=== PATIENT | female | born 1950 | race Caucasian/White ===

== ENCOUNTER 2018-07-05 19:47 | Observation (INO) ==
[2018-07-05] MEDS ORDERED: Azithromycin 250 MG TABLET PO ONE (19:48)
[2018-07-05] MEDS ORDERED: Ipratropium/Albuterol Neb 3 ML IH ONE (19:48)
[2018-07-05] MEDS ORDERED: predniSONE 20 MG TABLET PO ONE (19:48)
--- NOTE | 2018-07-05 19:51 | Emergency Department Note ---
Disposition Clinical Impression: Acute bronchitis with bronchospasm, Elevated troponin I level, Lactic acid increased Disposition: Admitted As Inpatient Condition: Fair Referrals: Genie Chaidez MD [Primary Care Provider] - Forms: ED Satisfaction Letter SOB HPI - General Chief Complaint: ED Shortness of Breath/Dyspnea Stated Complaint: SOB Time Seen by Provider: 07/05/18 19:48 Source: patient, family Mode of arrival: private vehicle Limitations: no limitations Nursing Notes Reviewed: Yes Vital Signs Reviewed: Yes - History of Present Illness Patient relates she is been feeling poorly for 4-5 weeks is occasional shortness of breath. She is seen initially had an urgent care and she had an antibiotic and steroid given. She states she was doing much better this had increased shortness of breath again especially in the last 2-3 days. She has had a cough increased wheezing and production of some clear phlegm. She states she has had a history of asthma and CHF but not COPD. She does have a long history of smoking exposure to smoke. She herself is been a nonsmoker. She denies any lower extremity swelling or increase in weight. She denies fevers or chills. She denies chest pain or palpitations. Denies nausea, vomiting or abdominal pain. She denies any ill exposures. She states she has been on her routine inhaler and aerosols with the last aerosol just prior to arrival. She states she is diabetic and her blood sugars have been running in the range of 100-120. She ambulates in with a cane. Pt Subjective Complaint: shortness of breath Onset (ago): day(s) Context: recent illness Severity: mild, moderate Consistency/Duration: intermittent, gradually worsening Improves with: oxygen, bronchodilators Worsens with: exertion, movement, coughing Known history of: asthma, congestive heart failure Associated symptoms: Reports: cough, wheezing, sputum production. Denies: chest pain, pain with inspiration, fever, orthopnea, lower extremity pain, polyuria, polydipsia, parasthesias, palpitations, hemoptysis, diaphoresis, nausea/vomiting, syncope, abdominal pain, rash Treatment prior to arrival: bronchodilator Cough present: Yes Cough Description: Voluntary, Productive, Moist, Wheezy Cough Frequency: Intermittent Sputum production: Yes Sputum Amount: Moderate Sputum Color: Clear - Related Data Home Medications Medication Instructions Recorded Confirmed Insulin DETEMIR [Levemir] 50 unit SQ HS 08/09/16 07/05/18 Loratadine [Claritin] 10 mg PO QAM 08/09/16 07/05/18 Montelukast [Singulair] 10 mg PO HS 08/09/16 07/05/18 SitaGLIPtin [Januvia] 100 mg PO DAILY 08/09/16 07/05/18 Albuterol Sulfate [Proair Hfa] 2 puff IH Q4H PRN 08/10/16 07/05/18 Beclomethasone Diprop 80mcg [QVAR 1 puff IH BID 08/10/16 07/05/18 80 mcg] Metformin HCl [Metformin HCl ER] 2,000 mg PO QPM 08/10/16 07/05/18 Furosemide [Lasix] 40 mg PO BID 09/06/16 07/05/18 Lisinopril [Zestril] 2.5 mg PO DAILY 04/27/17 07/05/18 Acetaminophen [Tylenol] 650 mg PO Q6HR PRN 05/06/17 07/05/18 Warfarin Sodium 2.5 mg PO DAILY 05/06/17 07/05/18 Potassium Chloride [Klor-Con 10] 20 meq PO DAILY 06/22/17 07/05/18 Previous Rx's Medication Instructions Recorded Ferrous Sulfate 325 mg PO BIDWM #60 tablet 01/19/17 Albuterol Neb [Proventil Neb] 2.5 mg IH Q6H PRN #60 inhsol 04/10/17 Guaifenesin [Mucinex] 600 mg PO BID #30 tab.er.12h 06/07/18 PredniSONE [Deltasone] 20 mg PO DAILY #12 tablet 06/07/18 Allergies Allergy/AdvReac Type Severity Reaction Status Date / Time No Known Allergies Allergy Verified 06/07/18 10:30 All systems ED: reviewed and negative except as stated. Past Medical History - Past Medical History Attestation: Yes The following information was validated with the patient. Source: patient, old records reviewed, obtained from family, nursing notes reviewed Medical history: Reports: asthma, atrial fibrillation (On anticoagulation), CHF, diabetes, hyperlipidemia, hypertension, other (Chronically elevated troponin I). Denies: COPD Surgical history: Reports: appendectomy, other, pacemaker Psychiatric history: Reports: anxiety, depression - Social History Smoking Status: 2nd Hand Smoke Exposure Smokeless Tobacco Status: No Alcohol use: Reports: none Drug use: Reports: none Physical Exam - General Limitations: no limitations General appearance: alert, anxious - Head Head exam: atraumatic, normocephalic, normal inspection - Eye Eye exam: Present: normal appearance, PERRL, EOMI. Absent: scleral icterus, conjunctival injection - ENT ENT exam: normal exam, normal oropharynx, mucous membranes moist - Neck Neck exam: Present: normal inspection, full ROM, trachea midline - Chest Chest inspection: Present: normal inspection, symmetric chest wall rise - Respiratory Respiratory exam: Present: respiratory distress, wheezes, prolonged expiratory phase. Absent: accessory muscle use - Cardiovascular Cardiovascular exam: Present: regular rate, normal rhythm, normal heart sounds. Absent: tachycardia - Abdominal Exam Abdominal exam: Present: soft, Non-Tender, normal bowel sounds. Absent: tenderness, distention, guarding, rebound, rigidity - Extremities Exam Extremities exam: Present: normal inspection, full ROM, normal capillary refill. Absent: tenderness, pedal edema, calf tenderness - Expanded Lower Extremity Exam Neurovascular/Tendon exam: Present: normal capillary refill. Absent: motor deficit, sensory deficit, tendon deficit Gait: observed and normal (With a cane) - Back Exam Back exam: Present: normal inspection, full ROM. Absent: tenderness - Neurological Exam Neurological exam: Present: alert, oriented X3 - Psychiatric Psychiatric exam: Present: normal affect, anxious - Skin Skin exam: Present: warm, dry, intact, normal color. Absent: cyanosis, diaphoresis, pallor Course Course Narrative: Care is been discussed with the patient and family and subsequently with Dr. Tejeda at 9:33 PM. He is agreeable with continuation of respiratory protocol inpatient. Patient does have a history of chronically elevated troponins and she is not having chest pain or heart failure. He is in agreement of not trending the troponins unless her symptoms are otherwise changing. She has been continued with IV fluids, administered Rocephin intravenously and scheduled for recheck of her lactic acid. Currently she does not appear to be septic. Verbal orders have been obtained for her observation period. Vital Signs Temperature 97.9 F 07/05/18 19:51 Pulse Rate 74 07/05/18 19:51 Respiratory Rate 24 07/05/18 19:51 Blood Pressure 117/48 07/05/18 19:51 O2 Sat by Pulse Oximetry 95 07/05/18 19:51 Temperature 97.9 F 07/05/18 19:51 Pulse Rate 72 07/05/18 19:56 Respiratory Rate 20 07/05/18 20:01 Blood Pressure 117/48 07/05/18 19:56 O2 Sat by Pulse Oximetry 95 07/05/18 20:01 Oxygen Delivery Oxygen Delivery Room Air Shortness of Breath/Dyspnea - Differential Diagnosis Likely: acute exacerbation of chronic obstructive airways disease, congestive heart failure, pneumonia, asthma with exacerbation. Unlikely: pneumothorax - Medical Records Medical records reviewed: Yes I reviewed the patient's medical records. - Lab Data Lab results reviewed: Yes I reviewed the patient's lab results. Result diagrams: 07/05/18 20:13 07/05/18 20:13 Lab Results 07/05/18 07/05/18 07/05/18 Range/Units 20:13 20:13 20:13 WBC 5.9 (4.3-11.1) K/mcL RBC 3.25 L (3.82-4.97) M/mcL Hgb 9.4 L (11.5-15.4) g/dL Hct 29.6 L (35.3-44.9) % MCV 91.1 (83.0-100.0) fL MCH 28.9 (28.0-33.3) pg MCHC 31.8 (31.6-35.5) g/dL RDW 13.7 (11.5-14.5) % Plt Count 217 (140-400) K/mcL MPV 9.3 L (9.4-12.4) fL Immature Gran % 0.8 (0-4) % Seg Neutrophils % 70.0 % Lymphocytes % 18.5 % Monocytes % 9.3 % Eosinophils % 1.2 % Basophils % 0.2 % Neutrophils # 4.1 (1.6-8.9) K/mcL Lymphocytes # 1.1 (0.6-4.6) K/mcL Monocytes # 0.6 (0.0-1.3) K/mcL Eosinophils # 0.1 (0.0-0.6) K/mcL Basophils # 0.0 (0.0-0.2) K/mcL PT (9.4-12.1) Seconds INR Sodium 137 (136-145) mEq/L Potassium 4.3 (3.5-5.1) mEq/L Chloride 102 (98-107) mEq/L Carbon Dioxide 22 L (23-29) mEq/L BUN 18 (8-23) mg/dL Creatinine 1.40 H (0.60-1.20) mg/dL Est GFR ( Amer) 45 L (> 60) Est GFR (Non-Af Amer) 37 L (> 60) BUN/Creatinine Ratio 13 (6-26) Glucose 152 H (70-105) mg/dL Calculated Osmolality 289 (280-300) Lactic Acid 2.8 H (0.5-2.2) mmol/L Calcium 8.6 (8.6-10.3) mg/dL Troponin I 0.07 H* (< 0.04) ng/mL B-Natriuretic Peptide (Less than 100) pg/mL 07/05/18 07/05/18 Range/Units 20:13 20:13 WBC (4.3-11.1) K/mcL RBC (3.82-4.97) M/mcL Hgb (11.5-15.4) g/dL Hct (35.3-44.9) % MCV (83.0-100.0) fL MCH (28.0-33.3) pg MCHC (31.6-35.5) g/dL RDW (11.5-14.5) % Plt Count (140-400) K/mcL MPV (9.4-12.4) fL Immature Gran % (0-4) % Seg Neutrophils % % Lymphocytes % % Monocytes % % Eosinophils % % Basophils % % Neutrophils # (1.6-8.9) K/mcL Lymphocytes # (0.6-4.6) K/mcL Monocytes # (0.0-1.3) K/mcL Eosinophils # (0.0-0.6) K/mcL Basophils # (0.0-0.2) K/mcL PT 32.3 H (9.4-12.1) Seconds INR 2.9 Sodium (136-145) mEq/L Potassium (3.5-5.1) mEq/L Chloride (98-107) mEq/L Carbon Dioxide (23-29) mEq/L BUN (8-23) mg/dL Creatinine (0.60-1.20) mg/dL Est GFR ( Amer) (> 60) Est GFR (Non-Af Amer) (> 60) BUN/Creatinine Ratio (6-26) Glucose (70-105) mg/dL Calculated Osmolality (280-300) Lactic Acid (0.5-2.2) mmol/L Calcium (8.6-10.3) mg/dL Troponin I (< 0.04) ng/mL B-Natriuretic Peptide 258 H (Less than 100) pg/mL - Radiology Data Radiology results reviewed: Yes I reviewed the patient's radiology results. Single view chest x-rays performed. This demonstrates cardiomegaly without acute infiltrate, effusion, pneumothorax or heart failure. Patient has a pacer intact in the left upper chest with intact wires. This is on my interpretation. Impressions Chest X-Ray 07/05/18 19:48 IMPRESSION: No acute process. D/ / Pedro Osullivan MD / Pedro Osullivan MD Interpreting Provider: Pedro Osullivan MD - EKG Data EKG attestation: Yes I reviewed and interpreted this EKG. EKG results narrative: EKG demonstrates a atrioventricular paced rhythm without acute ST or T-wave changes. Rate is 74. This is on my interpretation.
[2018-07-05 20:30] LABS: Basophils % 0.2 %; Eosinophils # 0.1 K/mcL (0.0-0.6); Eosinophils % 1.2 %; Hematocrit 29.6 % (35.3-44.9); Hemoglobin 9.4 g/dL (11.5-15.4); Immature Granulocytes % 0.8 % (0-4); Lymphocytes # 1.1 K/mcL (0.6-4.6); Lymphocytes % 18.5 %; Mean Corpuscular HGB Conc 31.8 g/dL (31.6-35.5); Mean Corpuscular Hemoglobin 28.9 pg (28.0-33.3); Mean Corpuscular Volume 91.1 fL (83.0-100.0); Mean Platelet Volume 9.3 fL (9.4-12.4); Monocytes # 0.6 K/mcL (0.0-1.3); Monocytes % 9.3 %; Neutrophils # 4.1 K/mcL (1.6-8.9); Platelet Count 217 K/mcL (140-400); Red Blood Count 3.25 M/mcL (3.82-4.97); Red Cell Distribution Width 13.7 % (11.5-14.5)
[2018-07-05 20:31] LABS: INR 2.9; Prothrombin Time 32.3 Seconds (9.4-12.1)
[2018-07-05 20:43] LABS: Calcium 8.6 mg/dL (8.6-10.3); Potassium 4.3 mEq/L (3.5-5.1)
[2018-07-05 20:46] LABS: Troponin I 0.07 ng/mL (< 0.04)
[2018-07-05] MEDS ORDERED: cefTRIAXone 2,000 MG in 0.9 % Sodium Chloride Mini Bag 100 ML IVPB ONE (20:49)
[2018-07-05] MEDS ORDERED: 0.9 % Sodium Chloride 1,000 ML ONE (21:08)
[2018-07-05] MEDS: 0.9 % Sodium Chloride 1,000 ML IVC SCH ×2 (21:10→21:16)
[2018-07-05] MEDS ORDERED: Naloxone 0.4 MG/ML INJ IVP PRN (23:03)
[2018-07-05] MEDS ORDERED: *HR* Dextrose 50 % in Water (Syg) 50 ML SYRINGE IVP PRN (23:03)
[2018-07-05] MEDS ORDERED: Dextrose Gel 15 GM/37.5 ML TUBE PO PRN ×2 (23:03)
[2018-07-06] MEDS ORDERED: Acetaminophen 325 MG TABLET PO PRN (00:43)
[2018-07-06] MEDS ORDERED: 0.9 % Sodium Chloride 1,000 ML ONE (00:45)
[2018-07-06] MEDS ORDERED: D5% in Water 1,000 ML IVC PRN (00:46)
[2018-07-06] MEDS: Ipratropium/Albuterol Neb 3 ML IH SCH ×3 (02:02→09:11)
[2018-07-06] MEDS: 0.9 % Sodium Chloride 1,000 ML IVC SCH ×2 (06:13→18:01)
[2018-07-06] MEDS: *HR* SitaGLIPtin 25 MG TABLET PO SCH (08:01)
[2018-07-06] MEDS: Loratadine 10 MG TABLET PO SCH (08:02)
[2018-07-06] MEDS: predniSONE 20 MG TABLET PO SCH ×2 (08:03→17:33)
[2018-07-06] MEDS: Insulin LISPRO 300 UNITS/3 ML VIAL SQ SCH ×3 (08:04→17:38)
[2018-07-06] MEDS ORDERED: Furosemide 40 MG TABLET PO SCH (09:00)
--- NOTE | 2018-07-06 12:02 | Internal Med History&Physical ---
Date of Encounter: 07/06/18 Time of Encounter: 11:30 Assessment and Plan (1) (HFpEF) heart failure with preserved ejection fraction Current visit: No Status: Chronic Suspect primary contributor to dyspnea. Will increase Lasix and add low-dose Imdur. (2) Atrial fibrillation Current visit: No Status: Chronic Continue Coumadin. Qualifiers: Atrial fibrillation type: chronic Qualified Code(s): I48.2 - Chronic atrial fibrillation (3) CKD (chronic kidney disease) stage 2, GFR 60-89 ml/min Current visit: No Status: Acute Monitor renal indices. (4) Anemia Current visit: No Status: Chronic Present on all labs since August 2016. Order anemia testing in a.m. Qualifiers: Anemia type: iron deficiency Qualified Code(s): D50.9 - Iron deficiency anemia, unspecified (5) DM type 2 (diabetes mellitus, type 2) Current visit: Yes Status: Chronic Hemoglobin A1c was 6.2% on 06/23/2017. Recheck in a.m. Qualifiers: Diabetes mellitus jail insulin use: with director long term care use Diabetes mellitus complication status: with kidney complications Diabetes mellitus complication detail: with chronic kidney disease Chronic kidney disease stage: stage 3 (moderate) Qualified Code(s): E11.22 - Type 2 diabetes mellitus with diabetic chronic kidney disease; N18.3 - Chronic kidney disease, stage 3 (moderate); Z79.4 - longterm (current) use of insulin (6) Elevated troponin I level Current visit: Yes Status: Chronic Present on all labs since 04/10/2017. Heart cath August 2016 showed no significant CAD. Likely demand ischemia from heart failure. Internal Medicine - H&P: HPI Chief complaint: Dyspnea and cough Admitted From: Emergency Dept Plans for Post Hospital Care: Home History of present illness: Ms. Levi is a 67 year old female who came to emergency room stating she had onset of dyspnea with cough approximately 7 weeks earlier. She reports going to a local urgent care and receiving treatment which included antibiotics for 1 week. She had minimal change in symptoms so decided to come to emergency room. She was evaluated and was felt to have acute bronchitis with bronchospasm. She was admitted to [facility] floor for ongoing care needs. She states her breathing has improved. Respiratory history is significant for being a lifelong nonsmoker. She is uncertain if she has been diagnosed with asthma. She denies PFTs and does not use home oxygen. She has been diagnosed with ANNETTA but states she cannot tolerate CPAP/BiPAP. 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 ALso has a pacer/defib Psychiatric history: anxiety, depression - Past Surgical History Surgical History: appendectomy, other, pacemaker Additional surgical history: cervical fusion - Social History Smoking Status: 2nd Hand Smoke Exposure Smokeless Tobacco Status: No Alcohol use: none Drug use: none - Family History Mother Adopted: No Family Member Ethnicity: Non- Living Status: Hx Family Cardiac Disorders: No Hx Family Respiratory Disorders: No Hx Family Cancer: Yes (Cervical/Uterine) Hx Family GI Disorders: No Hx Family Endocrine Disorder: No Hx Family Neuromuscular Disorders: No Hx Family Neurologic Disorders: No Hx Family HEENT Disorders: No Hx Family Autoimmune Disorders: No Father Family Member Ethnicity: Non- Living Status: Hx Family Cardiac Disorders: Yes (IA, HTN) Brother Family Member Ethnicity: Non- Living Status: Still Living Sister Family Member Ethnicity: Non- Living Status: Hx Family Cancer: Yes Hx Family Endocrine Disorder: Yes (DM) Internal Medicine - H&P: Meds Insulin DETEMIR [Levemir] 50 unit SQ HS 08/09/16 [History] Loratadine [Claritin] 10 mg PO QAM 08/09/16 [History] Montelukast [Singulair] 10 mg PO HS 08/09/16 [History] SitaGLIPtin [Januvia] 100 mg PO DAILY 08/09/16 [History] Albuterol Sulfate [Proair Hfa] 2 puff IH Q4H PRN 08/10/16 [History] Beclomethasone Diprop 80mcg [QVAR 80 mcg] 1 puff IH BID 08/10/16 [History] Metformin HCl [Metformin HCl ER] 2,000 mg PO QPM 08/10/16 [History] Furosemide [Lasix] 40 mg PO BID 09/06/16 [History] Ferrous Sulfate 325 mg PO BIDWM #60 tablet 01/19/17 [Rx] Albuterol Neb [Proventil Neb] 2.5 mg IH Q6H PRN #60 inhsol 04/10/17 [Rx] Lisinopril [Zestril] 2.5 mg PO DAILY 04/27/17 [History] Acetaminophen [Tylenol] 650 mg PO Q6HR PRN 05/06/17 [History] Warfarin Sodium 2.5 mg PO DAILY 05/06/17 [History] Potassium Chloride [Klor-Con 10] 20 meq PO DAILY 06/22/17 [History] Guaifenesin [Mucinex] 600 mg PO BID #30 tab.er.12h 06/07/18 [Rx] PredniSONE [Deltasone] 20 mg PO DAILY #12 tablet 06/07/18 [Rx] 3 Allergy/AdvReac Type Severity Reaction Status Date / Time No Known Allergies Allergy Verified 06/07/18 10:30 All Systems PM: A 10-system review of systems was performed and is negative for pertinent findings except as documented above in the HPI. Review of systems: Enteral: Her weight has slightly decreased from 119.9 kg in 06/26/2017 to 115.014 kg on admission now. Cardiovascular: She has history of hypertension. She has a diagnoses of CHF. Limited echocardiogram 05/08/2017 showed LVEF of 50%. The interventricular septum and posterior wall thickness measurements were significantly increased at 1.45 and 1.52 cm respectively. Echocardiogram 09/07/2016 showed severe LV systolic dysfunction with LVEF of 30%. There was biatrial enlargement reported without measurements recorded. There was mild mitral regurgitation, mild tric uspid regurgitation, and elevated RVSP at 42 mmHg. She has a diagnosis of atrial fibrillation and is on Coumadin. She had dual-chamber pacemaker placed approximately 2012 but is uncertain of the qualifying diagnosis. She denies IA DVT or pulmonary embolus. Respiratory: As per history of present illness GI: She denies disorders of her liver gallbladder or exocrine pancreas : She was unaware she has chronic kidney disease stage 2-3. She does not follow with a cash management coordinator. She denies other kidney or bladder disorders. Neurologic: She denies large distribution strokes or seizures. Endocrine: She was diagnosed with DM 2 approximately 2007. She denies thyroid disease or hyperlipidemia Hematology/oncology: She was unaware she had anemia. She denies internal malignancies or other blood disorders. Psychiatric: She admits to feelings of depression periodically but does not take medication for this. She denies significant anxiety or other mental health diagnosis. [place] skeletal: She denies arthritis gout or other bone joint or muscle disorders. - Constitutional Vitals: Temp Pulse Resp BP Pulse Ox 97.6 F 75 16 112/65 94 07/06/18 06:50 07/06/18 06:50 07/06/18 09:12 07/06/18 06:50 07/06/18 09:12 Exam: Gen.: She is a well-developed overweight female lying in bed who appears slightly dyspneic HEENT: Head is atraumatic and normal cephalic. Eyes: EOMI. There is no scleral icterus. Mouth: Mucosa is moist. Neck: Supple and nontender. There is no thyromegaly or adenopathy noted. Heart: Regular without murmurs gallops or ectopics Lungs: She has prolonged expiratory phase with mild diffuse wheezing in the posterior lung marquez. No inspiratory crackles are heard. Abdomen: Soft and nontender. No masses or guarding are noted. Extremities: There is no cyanosis edema or clubbing noted. Dorsalis pedis and posttibial pulses are trace palpable bilaterally. Neurologic: Mental status: She is talkative and a good historian. Cranial nerves: Smile is symmetric. Forehead wrinkles bilaterally. Tongue protrudes midline. EOMI. She is slightly hard of hearing. Motor: There is no pronator drift. Cerebellar: Finger to nose is intact bilaterally. Skin: Warm and dry Internal Med - H&P Results - Labs CBC & Chem 7: 07/05/18 20:13 07/05/18 20:13 Labs: Short CBC 07/05/18 Range/Units 20:13 WBC 5.9 (4.3-11.1) K/mcL Hgb 9.4 L (11.5-15.4) g/dL Hct 29.6 L (35.3-44.9) % Plt Count 217 (140-400) K/mcL Neutrophils # 4.1 (1.6-8.9) K/mcL BMP 07/05/18 20:13 Sodium 137 Potassium 4.3 Chloride 102 Carbon Dioxide 22 L BUN 18 Creatinine 1.40 H Glucose 152 H Calcium 8.6 Cardiac Enzymes 07/05/18 Range/Units 20:13 Troponin I 0.07 H* (< 0.04) ng/mL - Impressions ITS Impressions Chest X-Ray 07/05/18 19:48 IMPRESSION: No acute process. D/ / Pedro Osullivan MD / Pedro Osullivan MD Interpreting Provider: Pedro Osullivan MD
[2018-07-06] MEDS: Isosorbide MONOnitrate (24 HR) 30 MG TAB.ER.24H PO SCH (13:49)
[2018-07-06] MEDS: Furosemide 40 MG TABLET PO SCH (17:33)
[2018-07-06] MEDS ORDERED: *HR* Metformin 500 MG TABLET PO SCH (18:00)
[2018-07-06] MEDS ORDERED: *HR* Warfarin 5 MG TABLET PO SCH (18:00)
[2018-07-06] MEDS ORDERED: Azithromycin 500 MG in D5% in Water 250 ML IVPB SCH (20:00)
[2018-07-06] MEDS ORDERED: cefTRIAXone 2,000 MG in 0.9 % Sodium Chloride Mini Bag 100 ML IVPB SCH (20:00)
[2018-07-06] MEDS ORDERED: Insulin DETEMIR 100 UNIT/ML X5UNITS SQ SCH (21:00)
[2018-07-06] MEDS: Albuterol 2.5 MG/3 ML NEBULIZER IH PRN (22:15)
[2018-07-06] MEDS ORDERED: Benzonatate 100 MG CAPSULE PO PRN (22:36)
[2018-07-07 06:33] VITALS: BP 128/80
[2018-07-07 08:54] LABS: % Iron Saturation 12 % (15-50); Iron 41 mcg/dL (50-170); Transferrin 250 mg/dL (203-362)
[2018-07-07 09:09] LABS: Ferritin 118 ng/mL (10-120)
[2018-07-07] MEDS: Loratadine 10 MG TABLET PO SCH (09:09)
[2018-07-07] MEDS: Furosemide 40 MG TABLET PO SCH (09:09)
[2018-07-07] MEDS: *HR* SitaGLIPtin 25 MG TABLET PO SCH (09:09)
[2018-07-07] MEDS: Insulin LISPRO 300 UNITS/3 ML VIAL SQ SCH (09:10)
[2018-07-07] MEDS: predniSONE 20 MG TABLET PO SCH (09:10)
[2018-07-07] MEDS: Isosorbide MONOnitrate (24 HR) 30 MG TAB.ER.24H PO SCH (09:10)
[2018-07-07] MEDS: Albuterol 2.5 MG/3 ML NEBULIZER IH PRN (10:19)
--- NOTE | 2018-07-07 11:06 | Discharge Summary ---
Orders not resulted at time of discharge: Pending orders 07/05/18 20:22 Culture,Blood [BC] Stat 07/07/18 04:40 Hgb A1C AM 0400 Date of Encounter: 07/07/18 Time of Encounter: 10:55 - Discharge Diagnosis (1) (HFpEF) heart failure with preserved ejection fraction Priority: Primary Status: Chronic (2) Atrial fibrillation Priority: Secondary Status: Chronic Qualifiers: Atrial fibrillation type: chronic Qualified Code(s): I48.2 - Chronic atrial fibrillation (3) CKD (chronic kidney disease) stage 2, GFR 60-89 ml/min Priority: Secondary Status: Acute (4) Anemia Priority: Secondary Status: Chronic Qualifiers: Anemia type: iron deficiency Qualified Code(s): D50.9 - Iron deficiency anemia, unspecified (5) DM type 2 (diabetes mellitus, type 2) Priority: Secondary Status: Chronic Qualifiers: Diabetes mellitus senior living insulin use: with senior living use Diabetes mellitus complication status: with kidney complications Diabetes mellitus complication detail: with chronic kidney disease Chronic kidney disease stage: stage 3 (moderate) Qualified Code(s): E11.22 - Type 2 diabetes mellitus with diabetic chronic kidney disease; N18.3 - Chronic kidney disease, stage 3 (moderate); Z79.4 - custodial (current) use of insulin (6) Elevated troponin I level Priority: Secondary Status: Chronic Hospital course: Ms. Levi is a 67 year old female who came to emergency room stating she had onset of dyspnea with cough approximately 7 weeks earlier. She reports going to a local urgent care and receiving treatment which included antibiotics for 1 week. She had minimal change in symptoms so decided to come to emergency room. She was evaluated and was felt to have acute bronchitis with bronchospasm. She was admitted to [facility] for ongoing care needs. Initial orders were written by the emergency room physician. I saw her on July 06 and performed a history and physical. Lasix dose was increased to 60 mg twice a day. Imdur was added at a dose of 30 mg daily. Lactic acid level normalized to 0.9 by July 06. Dyspnea had lessened when I saw her on July 07 and she felt stable for discharge home. She will continue Qvar and albuterol at home. Stiolto inhaler will be added. Room air oximetry showed adequate oxygenation without requirement for supplemental oxygen at home. Anemia testing showed iron 41, transferrin saturation 12%, transferrin 250, ferritin 118, B12 1483, and folate 9.0. She is presently ferrous sulfate twice a day at home. Her PCP can monitor anemia. She will follow with Dr. Chaidez within 1 week. - Time Spent with Patient Total time spent providing and/or coordinating discharge services: - Discharge Medications Prescriptions: Albuterol Neb [Proventil Neb] 2.5 mg IH Q6H PRN #60 inhsol PRN Reason: Wheezing Furosemide [Lasix] 60 mg PO BIDDIURETIC #90 tablet Isosorbide MONOnitrate (24 HR) [Imdur] 30 mg PO DAILY #30 tab.er.24h Tiotropium Br/Olodaterol HCl [Stiolto Respimat Inhal [place]] 4 gm IH DAILY #1 mist.inhal Home Medications: Insulin DETEMIR [Levemir] 50 unit SQ HS 08/09/16 [History] Loratadine [Claritin] 10 mg PO QAM 08/09/16 [History] Montelukast [Singulair] 10 mg PO HS 08/09/16 [History] SitaGLIPtin [Januvia] 100 mg PO DAILY 08/09/16 [History] Albuterol Sulfate [Proair Hfa] 2 puff IH Q4H PRN 08/10/16 [History] Beclomethasone Diprop 80mcg [QVAR 80 mcg] 1 puff IH BID 08/10/16 [History] Metformin HCl [Metformin HCl ER] 2,000 mg PO QPM 08/10/16 [History] Ferrous Sulfate 325 mg PO BIDWM #60 tablet 01/19/17 [Rx] Lisinopril [Zestril] 2.5 mg PO DAILY 04/27/17 [History] Acetaminophen [Tylenol] 650 mg PO Q6HR PRN 05/06/17 [History] Warfarin Sodium 2.5 mg PO DAILY 05/06/17 [History] Potassium Chloride [Klor-Con 10] 20 meq PO DAILY 06/22/17 [History] Guaifenesin [Mucinex] 600 mg PO BID #30 tab.er.12h 06/07/18 [Rx] PredniSONE [Deltasone] 20 mg PO DAILY #12 tablet 06/07/18 [Rx] Albuterol Neb [Proventil Neb] 2.5 mg IH Q6H PRN #60 inhsol 07/07/18 [Rx] Furosemide [Lasix] 60 mg PO BIDDIURETIC #90 tablet 07/07/18 [Rx] Isosorbide MONOnitrate (24 HR) [Imdur] 30 mg PO DAILY #30 tab.er.24h 07/07/18 [Rx] Tiotropium Br/Olodaterol HCl [Stiolto Respimat Inhal [place]] 4 gm IH DAILY #1 mist.inhal 07/07/18 [Rx] Allergies/Adverse Reactions: Allergy/AdvReac Type Severity Reaction Status Date / Time No Known Allergies Allergy Verified 06/07/18 10:30 Date of admission: 07/05/18 22:03 Primary care physician: Genie Chaidez MD - Constitutional Vitals: Temp Pulse Resp BP Pulse Ox 97.6 F 76 22 128/80 96 07/07/18 06:32 07/07/18 06:32 07/07/18 10:19 07/07/18 06:32 07/07/18 10:19 - Patient Status Disposition: Home, Self-Care Condition: Fair - Discharge Instructions Follow Up With: Genie Chaidez MD [Primary Care Provider] - 1 week - Diet and Activity Activity: resume usual activities as tolerated Diet: diabetic diet
[2018-07-07 14:55] LABS: Estimated Average Glucose 180 mg/dl; Hemoglobin A1C 7.9 %
--- NOTE | 2018-07-07 15:59 | Electrocardiograph Report ---
[address] [id number] Test Date: 2018-07-05 Pat Name: Leslie Levi Department: EDP-12 Room: [facility] Gender: F Assistant Project Manager: : 1950 Requested By: Clayton Parsons Order Number: [id number] Reading MD: Serge Garza Measurements Intervals Gering Rate: 74 P: WA: 56 QRS: 252 QRSD: 172 T: 86 QT: 430 QTc: 464 Interpretive Statements Atrial-ventricular dual-paced complexes No further analysis attempted due to paced rhythm Electronically Signed On 07-07-2018 15:58:02 EST by Serge Garza
== END 2018-07-07 12:28 | disposition home or self-care (01) ==
LOC: INPPIK 19:47 → EMEROOPIK 19:47 → INPPIK 22:49
PROVIDERS: ADMIT Internal Medicine; ATTEND Internal Medicine

== ENCOUNTER 2022-03-14 21:08 | Inpatient (IN) ==
[2022-03-14 22:37] LABS: Basophils % 0.2 %; Eosinophils # 0.1 K/mcL (0.0-0.6); Eosinophils % 1.7 %; Hematocrit 25.6 % (35.3-44.9); Hemoglobin 8.1 g/dL (11.5-15.4); Immature Granulocytes % 0.4 % (0-4); Lymphocytes % 20.3 %; Mean Corpuscular HGB Conc 31.6 g/dL (31.6-35.5); Mean Corpuscular Hemoglobin 29.5 pg (28.0-33.3); Mean Corpuscular Volume 93.1 fL (83.0-100.0); Mean Platelet Volume 9.8 fL (9.4-12.4); Monocytes # 0.4 K/mcL (0.0-1.3); Monocytes % 8.5 %; Neutrophils # 3.2 K/mcL (1.6-8.9); Platelet Count 133 K/mcL (140-400); Red Blood Count 2.75 M/mcL (3.82-4.97); Red Cell Distribution Width 14.6 % (11.5-14.5); Segmented Neutrophils % 68.9 %; White Blood Count 4.7 K/mcL (4.3-11.1)
[2022-03-14 22:46] LABS: INR 2.4; Prothrombin Time 26.5 Seconds (9.4-12.1)
[2022-03-14 22:50] LABS: Bilirubin,Urine Negative (Negative); Blood,Urine Negative (Negative); Clarity,Urine Clear (Clear); Color,Urine Yellow (Yellow); Glucose,Urine (UA) Normal (Normal); Ketones,Urine Negative (Negative); Leukocyte Esterase,Urine Negative (Negative); Nitrite,Urine Negative (Negative); Protein,Urine Negative (Neg-Trace); Specific Gravity,Urine 1.015 (1.010-1.025); Urobilinogen,Urine Normal (Normal)
[2022-03-14 22:54] LABS: Albumin 3.7 g/dL (3.5-5.7); Albumin/Globulin Ratio 1.3 (1.1-2.2); Bilirubin,Direct 0.1 mg/dL (0.0-0.2); Bilirubin,Indirect 0.4 mg/dL (0.0-1.0); Bilirubin,Total 0.5 mg/dL (0.3-1.0); Calcium 8.7 mg/dL (8.6-10.3); Globulin 2.8 g/dL (2.4-3.5); Total Protein 6.5 g/dL (6.4-8.9)
[2022-03-14 23:08] LABS: Troponin I 0.04 ng/mL (< 0.04)
[2022-03-15] MEDS ORDERED: Furosemide 20 MG/2 ML VIAL IVP ONE (04:12)
[2022-03-15] MEDS ORDERED: Naloxone 0.4 MG/ML INJ IVP PRN (07:55)
[2022-03-15] MEDS ORDERED: Albuterol 2.5 MG/3 ML NEBULIZER IH PRN (08:01)
[2022-03-15] MEDS: Isosorbide MONOnitrate (24 HR) 30 MG TAB.ER.24H PO SCH (09:35)
[2022-03-15] MEDS: Aspirin 81 MG TAB.CHEW PO SCH (09:35)
[2022-03-15] MEDS: Albuterol 2.5 MG/3 ML NEBULIZER IH SCH ×3 (10:24→21:11)
[2022-03-15] MEDS: Tiotropium 10 INH DOSE IH SCH (10:25)
[2022-03-15 11:06] LABS: Sodium, Urine 91.6 mEq/L
[2022-03-15] MEDS ORDERED: *HR* Heparin 5,000 UNIT/ML VIAL SQ SCH (18:00)
[2022-03-15] MEDS ORDERED: Warfarin perPT PO PRN (18:00)
[2022-03-15] MEDS ORDERED: *HR* Warfarin 2 MG TABLET PO ONE (18:00)
[2022-03-15] MEDS: Acetaminophen 325 MG TABLET PO PRN (21:35)
[2022-03-15] MEDS: Melatonin 3 MG TABLET PO PRN (21:36)
[2022-03-15] MEDS: traZODone 50 MG TABLET PO SCH (21:36)
[2022-03-15] MEDS: Insulin DETEMIR 100 UNIT/ML X5UNITS SUBQ SCH (22:32)
[2022-03-16] MEDS: Albuterol 2.5 MG/3 ML NEBULIZER IH SCH ×4 (05:40→21:11)
[2022-03-16 07:10] LABS: Basophils % 0.4 %; Eosinophils # 0.1 K/mcL (0.0-0.6); Eosinophils % 1.1 %; Hematocrit 26.8 % (35.3-44.9); Hemoglobin 8.4 g/dL (11.5-15.4); Immature Granulocytes % 0.4 % (0-4); Lymphocytes # 0.8 K/mcL (0.6-4.6); Lymphocytes % 16.7 %; Mean Corpuscular HGB Conc 31.3 g/dL (31.6-35.5); Mean Corpuscular Hemoglobin 29.3 pg (28.0-33.3); Mean Corpuscular Volume 93.4 fL (83.0-100.0); Mean Platelet Volume 10.4 fL (9.4-12.4); Monocytes # 0.4 K/mcL (0.0-1.3); Monocytes % 8.9 %; Neutrophils # 3.3 K/mcL (1.6-8.9); Platelet Count 137 K/mcL (140-400); Red Blood Count 2.87 M/mcL (3.82-4.97); Red Cell Distribution Width 14.7 % (11.5-14.5); Segmented Neutrophils % 72.5 %; White Blood Count 4.5 K/mcL (4.3-11.1)
[2022-03-16 07:24] LABS: INR 2.1; Prothrombin Time 23.5 Seconds (9.4-12.1)
[2022-03-16 07:30] LABS: Calcium 8.9 mg/dL (8.6-10.3); Potassium 4.6 mEq/L (3.5-5.1)
[2022-03-16] MEDS: Acetaminophen 325 MG TABLET PO PRN ×2 (07:56→18:01)
[2022-03-16] MEDS: Tiotropium 10 INH DOSE IH SCH (09:21)
[2022-03-16] MEDS: Isosorbide MONOnitrate (24 HR) 30 MG TAB.ER.24H PO SCH (10:27)
[2022-03-16] MEDS: Aspirin 81 MG TAB.CHEW PO SCH (10:27)
[2022-03-16] MEDS ORDERED: *HR* Warfarin 3 MG TABLET PO ONE (18:00)
[2022-03-16] MEDS: Furosemide 40 MG/4 ML VIAL IVP SCH (18:06)
[2022-03-16] MEDS: traZODone 50 MG TABLET PO SCH (20:45)
[2022-03-16] MEDS: Melatonin 3 MG TABLET PO PRN (20:45)
[2022-03-16] MEDS: Insulin DETEMIR 100 UNIT/ML X5UNITS SUBQ SCH (20:48)
[2022-03-17] MEDS: Acetaminophen 325 MG TABLET PO PRN ×3 (00:42→20:29)
[2022-03-17] MEDS: Albuterol 2.5 MG/3 ML NEBULIZER IH SCH ×4 (04:33→22:41)
[2022-03-17 08:05] LABS: INR 2.6; Prothrombin Time 28.9 Seconds (9.4-12.1)
[2022-03-17 08:14] LABS: Potassium 4.7 mEq/L (3.5-5.1)
[2022-03-17] MEDS: Aspirin 81 MG TAB.CHEW PO SCH (08:52)
[2022-03-17] MEDS: Isosorbide MONOnitrate (24 HR) 30 MG TAB.ER.24H PO SCH (08:52)
[2022-03-17] MEDS: Furosemide 40 MG/4 ML VIAL IVP SCH ×2 (08:52→20:30)
[2022-03-17] MEDS: Tiotropium 10 INH DOSE IH SCH (09:48)
[2022-03-17] MEDS ORDERED: *HR* Warfarin 0.5 MG TABLET PO ONE ×2 (18:00→22:00)
[2022-03-17 18:43] VITALS: TEMP 97.6
[2022-03-17] MEDS: Insulin DETEMIR 100 UNIT/ML X5UNITS SUBQ SCH (20:30)
[2022-03-17] MEDS: traZODone 50 MG TABLET PO SCH (20:30)
[2022-03-18] MEDS: Acetaminophen 325 MG TABLET PO PRN ×2 (03:06→09:31)
[2022-03-18] MEDS: Albuterol 2.5 MG/3 ML NEBULIZER IH SCH ×2 (03:28→08:48)
[2022-03-18 07:16] LABS: INR 3.3; Prothrombin Time 36.8 Seconds (9.4-12.1)
[2022-03-18 07:48] VITALS: BP 109/61; PULSE 60
[2022-03-18 08:27] LABS: Calcium 8.5 mg/dL (8.6-10.3); Potassium 4.5 mEq/L (3.5-5.1)
[2022-03-18] MEDS: Tiotropium 10 INH DOSE IH SCH (08:48)
[2022-03-18 08:53] VITALS: RESP 18; O2SAT 99
[2022-03-18] MEDS: Aspirin 81 MG TAB.CHEW PO SCH (09:06)
[2022-03-18] MEDS: Furosemide 40 MG/4 ML VIAL IVP SCH (09:06)
[2022-03-18] MEDS: Isosorbide MONOnitrate (24 HR) 30 MG TAB.ER.24H PO SCH (09:06)
== END 2022-03-18 12:03 | disposition home or self-care (01) | DRG 291 ==
LOC: INPPIK 21:08 → EMEROOPIK 21:08 → SUATTDRO 03-15 04:27 → INPPIK 03-15 05:25
PROVIDERS: ADMIT Internal Medicine; ATTEND Nurse Practitioner